=== PATIENT | female | born 1990 | race Caucasian/White ===

== ENCOUNTER 2018-03-27 21:07 | Emergency (ER) | payer MEDICAID ==
[2018-03-27 21:07] VITALS: BMI 38.5
[2018-03-27 21:21] VITALS: RESP 17; O2SAT 100
[2018-03-27] MEDS ORDERED: Silver Sulfadiazine 1% Cream (25 gm) TP STA (21:48)
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
[2018-03-27 22:30] VITALS: BP 128/72; PULSE 82; TEMP 98.2
== END 2018-03-27 22:30 | disposition home or self-care (01) ==
LOC: ED 21:07
DX: T23.041A Burn of unspecified degree of multiple right fingers (nail), including thumb, initial encounter (principal); W86.8XXA Exposure to other electric current, initial encounter

== ENCOUNTER 2018-07-04 09:36 | Emergency (ER) | payer BC, MEDICAID ==
--- NOTE | 2018-07-04 10:12 | ED PDOC ---
Arrival/HPI - General Historian: Patient - History of Present Illness Narrative History of Present Illness (Text): 07/04/18 10:10 28 y/o female, pmh including hypothyroidism, allergic to penicillin and macrolides, c/o nausea/vomiting/diarrhea/bodyache started early this morning. Pt. stated that she woke up this morning with nausea/vomiting/diarrhea, no recent antibiotic use and no recent traveling, associated with bodyache, no recent traveling, no night sweat, no abdominal pain, no numbness or tingling, no other medical or psychological complaints. Past Medical History - Provider Review Nursing Documentation Reviewed: Yes - Infectious Disease Hx of Infectious Diseases: None - Tetanus Immunization Tetanus Immunization: Up to Date - Cardiac Hx Cardiac Disorders: Yes ("enlarged heart") - Pulmonary Hx Respiratory Disorders: No - Neurological Hx Neurological Disorder: No - HEENT Hx HEENT Disorder: No - Renal Hx Renal Disorder: No - Endocrine/Metabolic Hx Endocrine Disorders: Yes Hx Hypothyroidism: Yes - Hematological/Oncological Hx Blood Disorders: No - Integumentary Hx Dermatological Disorder: No - Musculoskeletal/Rheumatological Hx Musculoskeletal Disorders: No - Gastrointestinal Hx Gastrointestinal Disorders: No - Genitourinary/Gynecological Hx Genitourinary Disorders: No - Psychiatric Hx Psychophysiologic Disorder: No Hx Substance Use: No - Suicidal Assessment Feels Threatened In Home Enviroment: No Family/Social History - Physician Review Nursing Documentation Reviewed: Yes Family/Social History: Unknown Family HX Smoking Status: Never Smoked Hx Alcohol Use: No Hx Substance Use: No Allergies/Home Meds Allergies/Adverse Reactions: Allergies Penicillins Allergy (Verified 07/04/18 10:16) ANAPHYLAXIS peanut Adverse Reaction (Verified 07/04/18 10:16) RASH erythromycin Allergy (Uncoded 07/04/18 10:16) ANAPHYLAXIS Home Medications: Home Meds Medication Instructions Recorded Confirmed RX: Levothyroxine [Synthroid] 100 mcg PO DAILY 05/13/15 03/27/18 Review of Systems - Review of Systems Constitutional: Fatigue. absent: Fevers Eyes: absent: Vision Changes ENT: absent: Hearing Changes Respiratory: absent: SOB, Cough Cardiovascular: absent: Chest Pain Gastrointestinal: Diarrhea, Nausea, Vomiting. absent: Abdominal Pain Musculoskeletal: Myalgias. absent: Arthralgias, Back Pain Skin: absent: Rash, Pruritis Neurological: absent: Headache, Dizziness Psychiatric: absent: Anxiety, Depression, Suicidal Ideation Physical Exam - Systems Exam Head: Present: Atraumatic, Normocephalic Pupils: Present: PERRL Extroacular Muscles: Present: EOMI Conjunctiva: Present: Normal Mouth: Present: Moist Mucous Membranes Neck: Present: Normal Range of Motion Respiratory/Chest: Present: Clear to Auscultation, Good Air Exchange. No: Respiratory Distress, Accessory Muscle Use Cardiovascular: Present: Regular Rate and Rhythm, Normal S1, S2. No: Murmurs Abdomen: No: Tenderness, Distention, Peritoneal Signs, Rebound, Guarding Back: Present: Normal Inspection. No: CVA Tenderness, Midline Tenderness, Paraspinal Tenderness, Pain with Leg Raise, Decubitus Ulcer Upper Extremity: Present: Normal Inspection. No: Cyanosis, Edema Lower Extremity: Present: Normal Inspection. No: Edema Neurological: Present: GCS=15, CN II-XII Intact, Speech Normal, Motor Func Grossly Intact, Gait Normal, Memory Normal Skin: Present: Warm, Dry, Normal Color. No: Rashes Lymphatic: No: Cervical Adenopathy Psychiatric: Present: Alert, Oriented x 3, Normal Insight, Normal Concentration Medical Decision Making ED Course and Treatment: 07/04/18 10:12 -labs -IVF/pepcid/reglan -observe and reassess 07/04/18 11:39 -wbc 13.0, CT abdomen and pelvis added as she stated that she has epigastric abdominal pain now. 07/04/18 13:13 -Urine hcg is negative -Labs show no acute findings except wbc 13.0 -Lipase within normal limit -Mg within normal limit -UA show +UTI -CT abdomen and pelvis: No acute findings related to/ accounting for the clinical presentation. Additional benign and/or incidental findings described above. -Pt. feels well, asymptomatic, all labs/radiology results discussed. She has no other questions. -Discharge home with macrobid, pepcid, zofran, BRAT diet, avoid dairy diet for 3-4 days, have your pmd obtain stool culture if the diarrhea exceeded 3-4 days, return to the ER for any new or worsening signs or symptoms. - RAD Interpretation Radiology Orders: Date of service: 07/04/2018 PROCEDURE: CT Abdomen and Pelvis with contrast HISTORY: nausea/vomiting/diarrhea/pain, leukocytosis COMPARISON: None TECHNIQUE: Intravenous contrast dose: 100 cc Omnipaque 350 Radiation dose: Total exam DLP = 1134.10 mGy-cm. This CT exam was performed using one or more of the following dose reduction techniques: Automated exposure control, adjustment of the mA and/or kV according to patient size, and/or use of iterative reconstruction technique. FINDINGS: LOWER THORAX: Unremarkable. LIVER: Hepatic steatosis. No focal masses. No intrahepatic bile duct dilatation or perihepatic ascites. GALLBLADDER AND BILE DUCTS: Unremarkable. PANCREAS: Unremarkable. No gross lesion or ductal dilatation. SPLEEN: Unremarkable. ADRENALS: Unremarkable. No mass. KIDNEYS AND URETERS: Unremarkable. No hydronephrosis. No solid mass. VASCULATURE: Unremarkable. No aortic aneurysm. No atherosclerotic calcification or mural plaque present. BOWEL: Diverticulosis without an acute inflammatory component or other associated pathologic process. Portions of the colon are filled with fluid. Unremarkable small bowel. No obstruction. No gross mural thickening. APPENDIX: No abnormalities to suggest acute appendicitis. No right lower quadrant inflammatory processes identified. PERITONEUM: Unremarkable. No free fluid. No free air. LYMPH NODES: Unremarkable. No enlarged lymph nodes. BLADDER: Unremarkable. REPRODUCTIVE: Unremarkable. BONES: No acute fracture. OTHER FINDINGS: None. IMPRESSION: No acute findings related to/ accounting for the clinical presentation. Additional benign and/or incidental findings described above. 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 Disposition/Present on Arrival - Present on Arrival Any Indicators Present on Arrival: No History of DVT/PE: No History of Uncontrolled Diabetes: No Urinary Catheter: No History of Decub. Ulcer: No History Surgical Site Infection Following: None - Disposition Have Diagnosis and Disposition been Completed?: Yes Diagnosis: Gastroenteritis, UTI (urinary tract infection) Disposition: HOME/ ROUTINE Disposition Time: 13:15 Patient Plan: Discharge Condition: IMPROVED Additional Instructions: -Discharge home with macrobid, pepcid, zofran, BRAT diet, avoid dairy diet for 3-4 days, have your pmd obtain stool culture if the diarrhea exceeded 3-4 days, return to the ER for any new or worsening signs or symptoms. Prescriptions: Famotidine [Pepcid] 20 mg PO BID #20 tab Nitrofurantoin Macrocrystals [Macrobid] 100 mg PO BID #14 cap Ondansetron [Zofran] 4 mg PO Q8H PRN #10 tab PRN Reason: Nausea/Vomiting Referrals: Safia Fried MD [Primary Care Provider] - Follow up with primary Carolynn Mills MD [Medical Doctor] - Follow up with primary Forms: WORK NOTE
[2018-07-04 10:16] VITALS: BMI 37.3
[2018-07-04] MEDS ORDERED: Sodium Chloride 0.9% 1,000 ML IV STA (10:26)
[2018-07-04 11:24] VITALS: RESP 18; TEMP 98.3
[2018-07-04 11:26] LABS: BASO # 0.01 K/mm3 (0.0-2.0); BASO % 0.1 % (0.0-3.0); GRAN # 11.48 (1.4-6.5); GRAN % 88.4 % (50.0-68.0); HEMOGLOBIN 13.3 g/dL (12.0-16.0); LYMPH # 0.9 (1.2-3.4); LYMPH % 7.1 % (22.0-35.0); MEAN CELL VOLUME 85.4 fl (80.0-105.0); MEAN CORPUSCULAR HEMOGLOBIN 28.1 pg (25.0-35.0); MEAN CORPUSCULAR HGB CONC 32.8 g/dl (31.0-37.0); MEAN PLATELET VOLUME 9.3 fl (7.0-11.0); MONO # 0.6 (0.1-0.6); MONO % 4.4 % (1.0-6.0); RBC 4.74 10^6/uL (3.5-6.1); RED CELL DISTRIBUTION WIDTH 13.4 % (11.5-14.5)
[2018-07-04 11:28] LABS: URINE BILIRUBIN NEGATIVE (NEGATIVE); URINE BLOOD MODERATE (NEGATIVE); URINE GLUCOSE (UA) NEGATIVE (NEGATIVE); URINE LEUKOCYTE ESTERASE TRACE Leu/uL (NEGATIVE); URINE PROTEIN NEGATIVE mg/dL (<30 mg/dL); URINE UROBILINOGEN 0.2 E.U./dL (<1 E.U./dL)
[2018-07-04 11:33] LABS: URINE APPEARANCE CLEAR (CLEAR); URINE COLOR LIGHT YELLOW (YELLOW)
[2018-07-04 11:36] LABS: ALB/GLOB RATIO 1.2 (1.1-1.8); ALBUMIN 4.2 g/dL (3.0-4.8); ALT/SGPT 24 U/L (7-56); AST/SGOT 19 U/L (14-36); BLOOD UREA NITROGEN 12 mg/dL (7-21); CALCIUM 9.1 mg/dL (8.4-10.5); GFR NON-AFRICAN AMERICAN > 60; LIPASE 45 U/L (23-300)
[2018-07-04 11:40] LABS: URINE BACTERIA FEW (NEG)
[2018-07-04] MEDS ORDERED: Iohexol 350 MG/100 ML VIAL ONE (11:49)
--- NOTE | 2018-07-04 12:12 | CT ---
Date of service: 07/04/2018 PROCEDURE: CT Abdomen and Pelvis with contrast HISTORY: nausea/vomiting/diarrhea/pain, leukocytosis COMPARISON: None TECHNIQUE: Intravenous contrast dose: 100 cc Omnipaque 350 Radiation dose: Total exam DLP = 1134.10 mGy-cm. This CT exam was performed using one or more of the following dose reduction techniques: Automated exposure control, adjustment of the mA and/or kV according to patient size, and/or use of iterative reconstruction technique. FINDINGS: LOWER THORAX: Unremarkable. LIVER: Hepatic steatosis. No focal masses. No intrahepatic bile duct dilatation or perihepatic ascites. GALLBLADDER AND BILE DUCTS: Unremarkable. PANCREAS: Unremarkable. No gross lesion or ductal dilatation. SPLEEN: Unremarkable. ADRENALS: Unremarkable. No mass. KIDNEYS AND URETERS: Unremarkable. No hydronephrosis. No solid mass. VASCULATURE: Unremarkable. No aortic aneurysm. No atherosclerotic calcification or mural plaque present. BOWEL: Diverticulosis without an acute inflammatory component or other associated pathologic process. Portions of the colon are filled with fluid. Unremarkable small bowel. No obstruction. No gross mural thickening. APPENDIX: No abnormalities to suggest acute appendicitis. No right lower quadrant inflammatory processes identified. PERITONEUM: Unremarkable. No free fluid. No free air. LYMPH NODES: Unremarkable. No enlarged lymph nodes. BLADDER: Unremarkable. REPRODUCTIVE: Unremarkable. BONES: No acute fracture. OTHER FINDINGS: None. IMPRESSION: No acute findings related to/ accounting for the clinical presentation. Additional benign and/or incidental findings described above.
[2018-07-04 13:21] VITALS: BP 107/56; PULSE 90
[2018-07-04 13:28] VITALS: O2SAT 99
== END 2018-07-04 13:19 | disposition home or self-care (01) ==
LOC: ED 09:36
DX: K52.9 Noninfective gastroenteritis and colitis, unspecified (principal); N39.0 Urinary tract infection, site not specified
CPT/HCPCS: 74177; 80053; 81001; 83690; 83735; 85025; 87086; 96361; 96374; 96375; 99284; J2405; J2765; J7030; Q9967